=== PATIENT | male | born 1975 | race American Indian/Alaskan Native ===

== ENCOUNTER 2017-01-19 09:04 | Emergency (ER) | payer SELFPAY ==
[2017-01-19 09:04] VITALS: BMI 27.4
[2017-01-19 09:13] VITALS: O2SAT 98
[2017-01-19 10:01] LABS: URINE BILIRUBIN NEGATIVE (NEGATIVE); URINE BLOOD NEGATIVE (NEGATIVE); URINE COLOR Straw (YELLOW); URINE GLUCOSE (UA) NORMAL (Normal); URINE KETONE NEGATIVE (NEGATIVE); URINE LEUKOCYTE ESTERASE NEG Leu/uL (Negative); URINE PROTEIN NEGATIVE (NEGATIVE); URINE UROBILINOGEN NORMAL mg/dL (0.2-1.0); WBC URINE < 1 /hpf (0-5)
[2017-01-19 10:15] LABS: BASO % 0.6 % (0.0-2.0); EOS # 0.1 K/uL (0.0-0.7); EOS % 1.4 % (0.0-4.0); HEMATOCRIT 44.5 % (35.0-51.0); LYMPH # 1.8 K/uL (1.0-4.3); LYMPH % 38.4 % (20.0-40.0); MEAN CELL VOLUME 77.5 fL (80.0-94.0); MEAN CORPUSCULAR HEMOGLOBIN 25.3 pg (27.0-31.0); MEAN CORPUSCULAR HGB CONC 32.6 g/dL (33.0-37.0); MEAN PLATELET VOLUME 8.6 fL (7.2-11.7); MONO # 0.5 K/uL (0.0-0.8); MONO % 9.6 % (0.0-10.0); NRBC % 0.1 % (0.0-2.0); RED CELL DISTRIBUTION WIDTH 14.3 % (11.5-14.5); WHITE BLOOD COUNT 4.7 K/uL (4.8-10.8)
[2017-01-19 10:19] LABS: ALB/GLOB RATIO 1.3 (1.0-2.1); ALKALINE PHOSPHATASE 44 U/L (38-126); ALT/SGPT 43 U/L (21-72); AST/SGOT 38 U/L (17-59); BLOOD UREA NITROGEN 13 mg/dL (9-20); CALCIUM 8.3 mg/dl (8.6-10.4); CARBON DIOXIDE 23 mmol/L (22-30); CHLORIDE 100 mmol/L (98-107); GFR AFRICAN-AMERICAN > 60; GLUCOSE,RANDOM 86 mg/dL (75-110); POTASSIUM 3.9 mmol/L (3.6-5.2); SODIUM 135 mmol/L (132-148); TOTAL PROTEIN 6.9 g/dL (6.3-8.3)
--- NOTE | 2017-01-19 11:07 | C.PDOC ---
History Of Present Illness 41 yr old male with no significant past medical history presents to the ER with complaints of mild LLQ/superpubic pain and increased urination for the past several days. Patient denies fever, chest pain, SOB, nausea, vomiting, dysuria/ hematuria, penile discharge, testicular pain, rashes or back pain. Time Seen by Provider: 01/19/17 09:10 Chief Complaint (Nursing): Abdominal Pain History Per: Patient History/Exam Limitations: no limitations Onset/Duration Of Symptoms: Days (Several days) Severity: Mild Past Medical History Reviewed: Historical Data, Nursing Documentation, Vital Signs Vital Signs: Last Vital Signs Temp 97.6 F 01/19/17 11:08 Pulse 54 L 01/19/17 11:08 Resp 20 01/19/17 11:08 BP 122/74 01/19/17 11:08 Pulse Ox 98 01/19/17 11:22 - Medical History PMH: No Chronic Diseases Family History: States: No Known Family Hx - Social History Hx Tobacco Use: Yes Hx Alcohol Use: Yes Hx Substance Use: No - Immunization History Hx Tetanus Toxoid Vaccination: Yes Hx Influenza Vaccination: Yes Hx Pneumococcal Vaccination: Yes Review Of Systems Except As Marked, All Systems Reviewed And Found Negative. Constitutional: Negative for: Fever Cardiovascular: Negative for: Chest Pain Respiratory: Negative for: Shortness of Breath Gastrointestinal: Positive for: Abdominal Pain (LLQ/Superpubic pain ). Negative for: Nausea, Vomiting Genitourinary: Positive for: Other ((+) Increased urination ). Negative for: Dysuria, Hematuria, Penile Discharge, Penile Pain Musculoskeletal: Negative for: Back Pain Skin: Negative for: Rash Physical Exam - Physical Exam Appears: Well, Non-toxic, No Acute Distress Skin: Warm, Dry, No Rash Oral Mucosa: Moist Cardiovascular: Rhythm Regular, Murmur Respiratory: Normal Breath Sounds, No Rales, No Rhonchi, No Wheezing Gastrointestinal/Abdominal: Normal Exam, Bowel Sounds, Soft, No Tenderness, No Guarding, No Rebound Male Genital: No Testicular Tenderness, No Testicular Swelling, Other (No inguinal lymphadenopathy. No hernias palpated ) Extremity: Normal ROM, No Swelling Neurological/Psych: Oriented x3 ED Course And Treatment - Laboratory Results Result Diagrams: 01/19/17 10:01 01/19/17 10:01 O2 Sat by Pulse Oximetry: 98 (RA ) Pulse Ox Interpretation: Normal Progress Note: PLAN: Blood work, UA ordered and reviewed. Reevaluation Time: 11:15 Reassessment Condition: Improved (Patient reassessed, is resting comfortably, in no current pain/distress. On exam, abdomen is soft and nontender. Blood work and UA unremarkable. Discuccsed risk vs benefits of getting CT scan at this time. Patient is agreement with not getting imaging at this time, particularly since he has no current pain. Patient given copies of all studies and instructed to follow up with PMD/clinic in 1-2 days. He understands he should return to ED if symptoms worsen.) Disposition Counseled Patient/Family Regarding: Studies Performed, Diagnosis, Need For Followup, Rx Given - Disposition Referrals: Eva Wolfe MD [Staff Provider] - [facility] [Outside] Disposition: HOME/ ROUTINE Disposition Time: 11:15 Condition: STABLE Additional Instructions: FOLLOW UP WITH MEDICAL DOCTOR IN 1-2 DAYS USE PAIN MEDICATION NEEDED RETURN TO ER IF SYMPTOMS WORSEN Instructions: Abdominal Pain (ED) Print Language: SETSWANA - POA Present On Arrival: None - Clinical Impression Clinical Impression: Abdominal pain - Scribe Statement The provider has reviewed the documentation as recorded by the Joeibe Joelle Marie Provider Attestation: All medical record entries made by the Joeibyasmine were at my direction and personally dictated by me. I have reviewed the chart and agree that the record accurately reflects my personal performance of the history, physical exam, medical decision making, and the department course for this patient. I have also personally directed, reviewed, and agree with the discharge instructions and disposition.
[2017-01-19 11:09] VITALS: BP 122/74; PULSE 54; RESP 20; TEMP 97.6
== END 2017-01-19 11:22 | disposition home or self-care (01) ==
LOC: C.ER 09:04
DX: R10.32 Left lower quadrant pain (principal)

== ENCOUNTER 2017-06-27 22:24 | Emergency (ER) | payer SELFPAY ==
[2017-06-27 22:24] VITALS: BMI 27.4
[2017-06-27 22:35] VITALS: BP 130/74; PULSE 80; RESP 14; TEMP 97.6; O2SAT 97
[2017-06-27] MEDS ORDERED: Naproxen 550 mg Tab PO STA (23:09)
[2017-06-27] MEDS ORDERED: Naproxen 550 mg Tab PO ONE (23:15)
--- NOTE | 2017-06-27 23:15 | C.PDOC ---
History Of Present Illness Patient is a 41 y/o male who presents to the ED with a complaint of left lower back pain for the last week. Patient reports to have been lifting heavy weights at the gym a week ago, and pain has progressively worsened since. Patient admits to pain worsening with ambulation and movement. Denies any weakness, numbness, incontinence, or any OTC medication use. No other physical complaints at this time. Time Seen by Provider: 06/27/17 22:40 Chief Complaint (Nursing): Back Pain History Per: Patient History/Exam Limitations: no limitations Onset/Duration Of Symptoms: Days (1 week) Current Symptoms Are (Timing): Still Present Previous Symptoms: Back Pain Associated Symptoms: denies: Incontinence, New Weakness, New Numbness Exacerbating Factor(s): Movement, Other (ambulation) Recent travel outside of the [place]: No Past Medical History Reviewed: Historical Data, Nursing Documentation, Vital Signs Vital Signs: Last Vital Signs Temp 97.6 F 06/27/17 22:33 Pulse 80 06/27/17 22:33 Resp 14 06/27/17 22:33 BP 130/74 06/27/17 22:33 Pulse Ox 97 06/27/17 23:59 - Medical History PMH: No Chronic Diseases Surgical History: No Surg Hx Family History: States: Unknown Family Hx - Social History Hx Tobacco Use: Yes Hx Alcohol Use: Yes Hx Substance Use: No - Immunization History Hx Tetanus Toxoid Vaccination: Yes Hx Influenza Vaccination: Yes Hx Pneumococcal Vaccination: Yes Review Of Systems Genitourinary: Negative for: Incontinence Musculoskeletal: Positive for: Back Pain (left lower back) Neurological: Negative for: Weakness, Numbness Physical Exam - Physical Exam Appears: Well, Non-toxic Oral Mucosa: Moist Back: No CVA Tenderness, No Vertebral Tenderness, Straight Leg Raising (40 degrees), Other (left lumbar tenderness) Pulses: Left Dorsalis Pedis: Normal, Right Dorsalis Pedis: Normal Neurological/Psych: Oriented x3, Normal Speech, Normal Cognition Gait: Other (fully ambulatory) ED Course And Treatment O2 Sat by Pulse Oximetry: 97 (room air) Pulse Ox Interpretation: Normal Progress Note: Anaprox administered. Patient advised to followup with PMD and to return to ER if symptoms worsen. Medication to be taken as directed. Patient discharged. Disposition - Disposition Disposition: HOME/ ROUTINE Disposition Time: 23:46 Condition: STABLE Additional Instructions: Take meds as directed Follow up in clinic Return to ER if worse Prescriptions: Cyclobenzaprine [Cyclobenzaprine HCl] 10 mg PO HS #10 tab Naproxen [Naprosyn] 1 tab PO BID PRN #20 tab PRN Reason: Pain Instructions: Sciatica (ED) Forms: [employer] (German) - Clinical Impression Clinical Impression: Low back strain - Scribe Statement The provider has reviewed the documentation as recorded by the Scribyasmine Handy All medical record entries made by the Joeibyasmine were at my direction and personally dictated by me. I have reviewed the chart and agree that the record accurately reflects my personal performance of the history, physical exam, medical decision making, and the department course for this patient. I have also personally directed, reviewed, and agree with the discharge instructions and disposition.
== END 2017-06-27 23:33 | disposition home or self-care (01) ==
LOC: C.ER 22:24
DX: S39.012A Strain of muscle, fascia and tendon of lower back, initial encounter (principal); X50.0XXA Overexertion from strenuous movement or load, initial encounter; Y92.39 Other specified sports and athletic area as the place of occurrence of the external cause; Z87.891 Personal history of nicotine dependence

== ENCOUNTER 2017-12-20 10:06 | Emergency (ER) | payer SELFPAY ==
[2017-12-20 10:07] VITALS: BMI 27.4
[2017-12-20 10:11] VITALS: BP 131/84; PULSE 76; RESP 16; TEMP 99.1; O2SAT 97
[2017-12-20] MEDS ORDERED: Penicillin G Benzathine 1.2 Mill Unit/2 ml Syr IM ONE ×2 (10:19→10:31)
--- NOTE | 2017-12-20 10:22 | C.PDOC ---
History Of Present Illness 42 y/o male presents to the ED complaining of a sore throat since yesterday. Associated with generalized fatigue. Otherwise patient denies any fever, chills , cough, SOB, or other associated symptoms. SORE THROAT SINCE YEST. GEN FATIGUE. NO FEVER, CHILLS. EXAM MILD DIST NONTOXIC HEENT +PHARNGITIS W EXUDATE; UVULA MIDLINE. NO DROOL, STRIDOR NECK SUPPLE REMAINDE RNEG MDM PT REQUESTING ABX SHOT. Time Seen by Provider: 12/20/17 10:15 Chief Complaint (Nursing): ENT Problem History Per: Patient History/Exam Limitations: no limitations Onset/Duration Of Symptoms: Days Current Symptoms Are (Timing): Still Present Associated Symptoms: Sore Throat Past Medical History Reviewed: Historical Data, Nursing Documentation, Vital Signs Vital Signs: Last Vital Signs Temp 99.1 F 12/20/17 10:11 Pulse 76 12/20/17 10:11 Resp 16 12/20/17 10:11 BP 131/84 12/20/17 10:11 Pulse Ox 97 12/20/17 11:38 - Medical History PMH: No Chronic Diseases Surgical History: No Surg Hx Family History: States: Unknown Family Hx - Social History Hx Tobacco Use: Yes Hx Alcohol Use: Yes Hx Substance Use: No - Immunization History Hx Tetanus Toxoid Vaccination: Yes Hx Influenza Vaccination: Yes Hx Pneumococcal Vaccination: Yes Review Of Systems Except As Marked, All Systems Reviewed And Found Negative. Constitutional: Negative for: Fever, Chills ENT: Positive for: Throat Pain Respiratory: Negative for: Cough, Shortness of Breath Physical Exam - Physical Exam Appears: Non-toxic, In Acute Distress (mild distress) Skin: Normal Color, Warm, Dry Head: Atraumatic, Normacephalic Eye(s): bilateral: Normal Inspection, PERRL, EOMI Nose: Normal Oral Mucosa: Moist Throat: Erythema (+ pharyngeal erythema), Exudate, No Drooling, Other (Uvula midline) Neck: Normal ROM, Trachea Midline, Supple Chest: Symmetrical Cardiovascular: Rhythm Regular, No Murmur Respiratory: Normal Breath Sounds (Lungs CTA bilaterally), No Accessory Muscle Use, No Stridor Extremity: Bilateral: Atraumatic, Normal Color And Temperature, Normal ROM Pulses: Left Radial: Normal, Right Radial: Normal Neurological/Psych: Oriented x3, Normal Speech ED Course And Treatment O2 Sat by Pulse Oximetry: 97 (RA) Pulse Ox Interpretation: Normal Medical Decision Making Medical Decision Making: Of note, patient is requesting shot of antibiotics. Time: 10:19 Initial Plan: --IM Penicillin --Decadron 12 mg PO --Toradol 60 mg IM Patient counseled regarding diagnosis and treatment plan. Advised to follow up with primary doctor/the clinic. Disposition Counseled Patient/Family Regarding: Diagnosis, Need For Followup - Disposition Referrals: [facility] [Outside] [facility] [Outside] Disposition: HOME/ ROUTINE Disposition Time: 10:21 Condition: IMPROVED Instructions: Sore Throat, Adult (DC) Forms: [employer] [facility] (Belarusian), Work Excuse - POA Present On Arrival: None - Clinical Impression Clinical Impression: Acute pharyngitis - Scribe Statement The provider has reviewed the documentation as recorded by the Scribe (Margareth Sosa) Provider Attestation: All medical record entries made by the Scribe were at my direction and personally dictated by me. I have reviewed the chart and agree that the record accurately reflects my personal performance of the history, physical exam, medical decision making, and the department course for this patient. I have also personally directed, reviewed, and agree with the discharge instructions and disposition.
== END 2017-12-20 11:09 | disposition home or self-care (01) ==
LOC: C.ER 10:06
DX: J02.9 Acute pharyngitis, unspecified (principal)
CPT/HCPCS: 96372; 99283; J0561; J1885; J8540